=== PATIENT | female | born 1930 | race Caucasian/White ===

== ENCOUNTER 2019-04-17 10:01 | Observation (INO) | payer OTHER ==
[~2019-04-17] VITALS: Ht 162.6 cm; Wt 48.8 kg
[2019-04-17 10:54] LABS: BASOPHILS ABSOLUTE AUTO 0.02 K/mm3 (0.00-0.23); BASOPHILS PERCENT AUTO 0 % (0-2); EOSINOPHILS ABSOLUTE AUTO 0.02 K/mm3 (0.00-0.68); EOSINOPHILS PERCENT AUTO 0 % (0-6); Hematocrit 35.4 % (33.0-51.0); Hemoglobin 11.5 g/dL (11.5-16.0); IMMATURE GRAN ABSOLUTE AUTO 0.07 K/mm3 (0.00-0.10); IMMATURE GRAN PERCENT AUTO 1 % (0-1); LYMPHOCYTES ABSOLUTE AUTO 1.07 K/mm3 (0.84-5.20); LYMPHOCYTES PERCENT AUTO 14 % (21-46); MONOCYTES PERCENT AUTO 10 % (4-13); Mean Corpuscular HGB 30.3 pg (26.0-34.0); Mean Corpuscular HGB Conc 32.5 g/dL (31.5-36.5); Mean Corpuscular Volume 93 fL (80-100); Mean Platelet Volume 11.8 fL (9.1-12.4); NEUTROPHILS ABSOLUTE AUTO 5.82 K/mm3 (1.96-9.15); NEUTROPHILS PERCENT AUTO 75 % (41-73); Platelet Count 166 K/mm3 (150-400); RDW Coefficient Variation 12.7 % (11.7-14.2); RDW Standard Deviation 43.8 fL (35.1-46.3); Red Blood Cell Count 3.79 M/mm3 (3.80-5.20)
[2019-04-17 11:15] LABS: Alanine Aminotransfer (ALT/SGP 24 U/L (12-78); Albumin, Blood 3.5 g/dL (3.4-5.0); Albumin/Globulin Ratio 1.2 (0.8-1.8); Alk Phos 59 U/L (50-136); Anion Gap 6 mmol/L (6-16); Aspartate Aminotrans (AST/SGOT 24 U/L (12-37); Bilirubin, Total 0.5 mg/dL (0.1-1.0); Blood Urea Nitrogen 24 mg/dL (8-24); Bun/Creatinine Ratio 29.4 (12.0-20.0); CO2, Blood 33 mmol/L (21-32); Calcium, Blood 8.7 mg/dL (8.5-10.1); Chloride, Blood 97 mmol/L (98-108); Creatinine, Blood 0.82 mg/dL (0.40-1.00); Globulin, Blood 2.9 g/dL (2.2-4.0); Glomerular Filtration Rate >60 (60-); Glucose, Blood 153 mg/dL (70-99); Potassium, Blood 3.7 mmol/L (3.5-5.5); Sodium, Blood 136 mmol/L (136-145); Total Protein, Blood 6.4 g/dL (6.4-8.2)
[2019-04-17] MEDS ORDERED: Bisoprolol-Hct1 EAC1 PO (12:30)
[2019-04-17] MEDS ORDERED: Morphine Sulfat15 MG PO ×2 (12:31→12:48)
[2019-04-17] MEDS ORDERED: GABA300 PO (12:32)
[2019-04-17] MEDS ORDERED: OMEPRAZOLE20 MG PO (12:32)
[2019-04-17] MEDS ORDERED: DULOXETINE HCL40 MG PO (12:33)
[2019-04-17] MEDS ORDERED: ONDA4ODT SL (12:33)
[2019-04-17] MEDS ORDERED: CALCIUM 600 +1 EAC8 PO (12:50)
[2019-04-17] MEDS ORDERED: THERA1 EACH PO (13:05)
[2019-04-17] MEDS ORDERED: VITAMIN D31000 UNI2 PO (13:06)
--- NOTE | 2019-04-17 16:51 | NUR ---
ADMISSION: REPORT RECIEVED FROM ED PITO MARTIN. PT TO UNIT AT ABOUT 1540. UPON ASSESSMENT PT IS A/O, WEAK TO AMBULATE, NEEDED 1-2 ASSIST FROM GURNEY TO BED. PT DENIES SOB,CHEST PAIN, OR DIZZINESS. BREATHS ARE EVEN AND UNLABORED. VSS, PT NEEDED 1L O2 FOR SPO2 ABOVE 90%. PT DAUGHTER IN ROOM AND HELPED WITH ADMISSION QUESTIONS. PT IS HIGH FALL RISK, HX OF SYNCOPE, WILL MONITOR CLOSELY. BED ALARM ON, WILL CTM
--- NOTE | 2019-04-17 18:16 | NUR ---
SUMMARY: NO ACUTE CHANGE SINCE ADMIT, PT MEDICATED FOR PAIN. UP WITH 1 ASSIST TO COMMODE. BREATHING WNL. NO SAFETY CONCERNS AT THIS TIME
[2019-04-18 05:10] LABS: BASOPHILS ABSOLUTE AUTO 0.01 K/mm3 (0.00-0.23); BASOPHILS PERCENT AUTO 0 % (0-2); EOSINOPHILS ABSOLUTE AUTO 0.04 K/mm3 (0.00-0.68); EOSINOPHILS PERCENT AUTO 1 % (0-6); Hemoglobin 10.2 g/dL (11.5-16.0); IMMATURE GRAN ABSOLUTE AUTO 0.03 K/mm3 (0.00-0.10); IMMATURE GRAN PERCENT AUTO 1 % (0-1); LYMPHOCYTES ABSOLUTE AUTO 1.18 K/mm3 (0.84-5.20); LYMPHOCYTES PERCENT AUTO 21 % (21-46); MONOCYTES ABSOLUTE AUTO 0.87 K/mm3 (0.16-1.47); MONOCYTES PERCENT AUTO 16 % (4-13); Mean Corpuscular HGB 31.2 pg (26.0-34.0); Mean Corpuscular HGB Conc 32.9 g/dL (31.5-36.5); Mean Corpuscular Volume 95 fL (80-100); Mean Platelet Volume 12.2 fL (9.1-12.4); NEUTROPHILS ABSOLUTE AUTO 3.45 K/mm3 (1.96-9.15); NEUTROPHILS PERCENT AUTO 62 % (41-73); Platelet Count 134 K/mm3 (150-400); RDW Coefficient Variation 12.5 % (11.7-14.2); RDW Standard Deviation 43.4 fL (35.1-46.3); Red Blood Cell Count 3.27 M/mm3 (3.80-5.20); White Blood Cell Count 5.58 K/mm3 (4.00-11.30)
--- NOTE | 2019-04-18 06:20 | NUR ---
SUMMARY PT OUT TO XRAY THIS AM. REMAINS ON O2. REPORTS BREATHING IS SOME EASIER. REPORTS RIBS CONTINUE TO BE PAINFUL.
--- NOTE | 2019-04-18 07:05 | NUR ---
PT LEFT FOR CHEST XRAY WITH AMBER FROM RADIOLOGY AT THIS TIME
--- NOTE | 2019-04-18 20:13 | NUR ---
SUMMARY: NO ACUTE CHANGE TODAY. PT ABLE TO WORK WITH PT/OT. DENIES AND SOB, BREATHING IS EVEN AND UNLABORED.TELE AND VS STABLE. ATTEMPTED TO WEAN O2 TODAY WITHOUT TOO MUCH SUCCESS. SPO2 STABLE ON RA WHILE PT IS RESTING. BUT PT DESAT'S TO LOW 80'S WHEN UP WITH PT/OT AND ALSO WHILE ASLEEP. STABLE ON 1L AT SHIFT END. ENCOURAGING I.S. USE. PT BREATHING PAINFUL WITH BIG BREATH. NO ACUTE SAFETY CONCERNS AT THIS TIME. PT DAUGHTER IN ROOM MOST OF THE DAY. REPORT GIVEN TO PITO WANG.
[2019-04-19 05:37] LABS: BASOPHILS ABSOLUTE AUTO 0.01 K/mm3 (0.00-0.23); BASOPHILS PERCENT AUTO 0 % (0-2); EOSINOPHILS ABSOLUTE AUTO 0.05 K/mm3 (0.00-0.68); EOSINOPHILS PERCENT AUTO 1 % (0-6); Hematocrit 32.6 % (33.0-51.0); Hemoglobin 10.8 g/dL (11.5-16.0); IMMATURE GRAN ABSOLUTE AUTO 0.04 K/mm3 (0.00-0.10); IMMATURE GRAN PERCENT AUTO 1 % (0-1); LYMPHOCYTES ABSOLUTE AUTO 0.93 K/mm3 (0.84-5.20); LYMPHOCYTES PERCENT AUTO 14 % (21-46); MONOCYTES ABSOLUTE AUTO 0.96 K/mm3 (0.16-1.47); MONOCYTES PERCENT AUTO 14 % (4-13); Mean Corpuscular HGB 30.9 pg (26.0-34.0); Mean Corpuscular HGB Conc 33.1 g/dL (31.5-36.5); Mean Corpuscular Volume 93 fL (80-100); Mean Platelet Volume 11.8 fL (9.1-12.4); NEUTROPHILS ABSOLUTE AUTO 4.83 K/mm3 (1.96-9.15); NEUTROPHILS PERCENT AUTO 71 % (41-73); Platelet Count 141 K/mm3 (150-400); RDW Coefficient Variation 12.4 % (11.7-14.2); RDW Standard Deviation 42.7 fL (35.1-46.3); Red Blood Cell Count 3.49 M/mm3 (3.80-5.20); White Blood Cell Count 6.82 K/mm3 (4.00-11.30)
[2019-04-19 05:54] LABS: Albumin, Blood 3.2 g/dL (3.4-5.0); Anion Gap 7 mmol/L (6-16); Blood Urea Nitrogen 14 mg/dL (8-24); Bun/Creatinine Ratio 22.6 (12.0-20.0); CO2, Blood 32 mmol/L (21-32); Calcium, Blood 8.6 mg/dL (8.5-10.1); Chloride, Blood 96 mmol/L (98-108); Creatinine, Blood 0.62 mg/dL (0.40-1.00); Glomerular Filtration Rate >60 (60-); Glucose, Blood 104 mg/dL (70-99); Phosphorus, Blood 2.4 mg/dL (2.5-4.9); Potassium, Blood 3.8 mmol/L (3.5-5.5); Sodium, Blood 135 mmol/L (136-145)
[2019-04-19] MEDS ORDERED: ACET325 PO (10:37)
[2019-04-19] MEDS ORDERED: METO50ER PO (10:38)
[2019-04-19] MEDS ORDERED: Senna Plus Tab1 EACH PO (10:38)
[2019-04-19] MEDS ORDERED: MIRALAX17 GM PO (10:39)
--- NOTE | 2019-04-19 10:46 | NUR ---
CALLED PRESCRIPTION TO [facility]
--- NOTE | 2019-04-19 13:05 | NUR ---
AMBULATING IN [facility] W/RESPIRATORY THERAPIST.
--- NOTE | 2019-04-19 16:46 | NUR ---
DISCHARGED REVIEWED DC PAPERWORK W/DAUGHTER; VERBALIZED UNDERSTANDING. DC'D IV, CATHETER INTACT. PT REC'D 02 TO TAKE HOME FROM [facility]. LEFT UNIT IN WC, ACCOMPANIED BY DAUGHTER W/POSSESSIONS AND DC INSTRUCTIONS IN HAND.
== END 2019-04-19 16:00 | disposition home or self-care (01) ==
LOC: EDBD 10:01 → ER 10:01 → SURS 10:02
PROVIDERS: Emergency Medicine; Nurse Practitioner Acute Care; ADMIT Internal Medicine
DX: S22.42XA Multiple fractures of ribs, left side, initial encounter for closed fracture (principal); S27.2XXA Traumatic hemopneumothorax, initial encounter; R09.02 Hypoxemia; I95.1 Orthostatic hypotension; I10 Essential (primary) hypertension; G89.29 Other chronic pain; M54.9 Dorsalgia, unspecified; K21.9 Gastro-esophageal reflux disease without esophagitis; F32.9 Major depressive disorder, single episode, unspecified; Z95.0 Presence of cardiac pacemaker; Z79.899 Other long term (current) drug therapy; Z87.311 Personal history of (healed) other pathological fracture; W22.8XXA Striking against or struck by other objects, initial encounter; Y93.01 Activity, walking, marching and hiking; Y92.000 Kitchen of unspecified non-institutional (private) residence as the place of occurrence of the external cause
CPT/HCPCS: 36415; 70450; 71045; 71046; 71250; 72125; 80053; 80069; 84484; 85025; 93005; 93010; 94762; 96374; 96375; 96376; 97110; 97161; 97166; 97530; 97535; 99285-25; A9270; G0378; J2405; J3010; J7030

== ENCOUNTER 2020-06-04 10:31 | Emergency (ER) | payer OTHER ==
[~2020-06-04] VITALS: Ht 160 cm; Wt 45.4 kg
[~2020-06-04 10:31] MED LIST: ACET325 PO; Bisoprolol-Hct1 EAC1 PO; CALCIUM 600 +1 EAC8 PO; DULOXETINE HCL40 MG PO; GABA300 PO; METO50ER PO; MIRALAX17 GM PO; Morphine Sulfat15 MG PO; OMEPRAZOLE20 MG PO; ONDA4ODT SL; Senna Plus Tab1 EACH PO; THERA1 EACH PO; VITAMIN D31000 UNI2 PO
[2020-06-04 11:19] LABS: BASOPHILS ABSOLUTE AUTO 0.04 K/mm3 (0.00-0.23); BASOPHILS PERCENT AUTO 0 % (0-2); EOSINOPHILS ABSOLUTE AUTO 0.03 K/mm3 (0.00-0.68); EOSINOPHILS PERCENT AUTO 0 % (0-6); Hematocrit 37.8 % (33.0-51.0); Hemoglobin 12.1 g/dL (11.5-16.0); IMMATURE GRAN ABSOLUTE AUTO 0.94 K/mm3 (0.00-0.10); IMMATURE GRAN PERCENT AUTO 5 % (0-1); LYMPHOCYTES ABSOLUTE AUTO 0.45 K/mm3 (0.84-5.20); LYMPHOCYTES PERCENT AUTO 2 % (21-46); MONOCYTES ABSOLUTE AUTO 2.55 K/mm3 (0.16-1.47); MONOCYTES PERCENT AUTO 12 % (4-13); Mean Corpuscular HGB 29.4 pg (26.0-34.0); Mean Corpuscular Volume 92 fL (80-100); Mean Platelet Volume 12.1 fL (9.1-12.4); NEUTROPHILS ABSOLUTE AUTO 16.96 K/mm3 (1.96-9.15); NEUTROPHILS PERCENT AUTO 81 % (41-73); Platelet Count 186 K/mm3 (150-400); RDW Coefficient Variation 13.1 % (11.7-14.2); Red Blood Cell Count 4.11 M/mm3 (3.80-5.20); White Blood Cell Count 20.97 K/mm3 (4.00-11.30)
[2020-06-04 11:35] LABS: Albumin, Blood 3.6 g/dL (3.4-5.0); Albumin/Globulin Ratio 1.1 (0.8-1.8); Bilirubin, Total 0.8 mg/dL (0.1-1.0); Bun/Creatinine Ratio 30.5 (12.0-20.0); Calcium, Blood 9.1 mg/dL (8.5-10.1); Creatinine, Blood 0.98 mg/dL (0.40-1.00); Globulin, Blood 3.3 g/dL (2.2-4.0); Potassium, Blood 3.5 mmol/L (3.5-5.5); Total Protein, Blood 6.9 g/dL (6.4-8.2)
[2020-06-04 12:34] LABS: Influenza A, PCR Negative (NEGATIVE); Influenza B, PCR Negative (NEGATIVE); Resp Syncytial Virus, PCR Negative (NEGATIVE); SARS-Cov-2 (COVID-19) PCR, MMC Negative (NEGATIVE)
[2020-06-04 14:39] LABS: Source, Urine Voided
[2020-06-04 14:41] LABS: Appearance, Urine Clear (Clear); Bilirubin, Urine Neg (Neg); Blood, Urine Neg (Neg); Color, Urine Amber (P-Yellow); Glucose Qualitative, Urine Neg (Neg); Ketones, Urine Neg (Neg); Leukocyte Esterase, Urine 2+ (Neg); Nitrite, Urine Neg (Neg); Protein, Urine 1+ (Neg); Urobilinogen, Urine 2+ (Normal)
[2020-06-04 14:47] LABS: Bacteria Mod /hpf; Red Blood Cells, Urine 0-2 /hpf (0-2); Squamous Epithelial Cells Few /hpf (Few)
[2020-06-04] MEDS ORDERED: AZIT250 PO (15:36)
== END 2020-06-04 16:33 | disposition home or self-care (01) ==
LOC: ER 10:31
PROVIDERS: Emergency Medicine
DX: J18.9 Pneumonia, unspecified organism (principal); I10 Essential (primary) hypertension; K21.9 Gastro-esophageal reflux disease without esophagitis; Z20.828 Contact with and (suspected) exposure to other viral communicable diseases; Z95.0 Presence of cardiac pacemaker; Z79.899 Other long term (current) drug therapy
CPT/HCPCS: 0241U; 36415; 71045; 80053; 81001; 85025; 87086; 96361; 96365; 99285-25; A9270; J0696; J7030

== ENCOUNTER 2020-07-30 08:28 | Emergency (ER) | payer OTHER ==
[~2020-07-30] VITALS: Ht 165.1 cm; Wt 40.8 kg
[~2020-07-30 08:28] MED LIST changes: +AZIT250 PO
[2020-07-30] MEDS ORDERED: GABA100 PO (08:59)
[2020-07-30 09:22] LABS: BASOPHILS ABSOLUTE AUTO 0.02 K/mm3 (0.00-0.23); BASOPHILS PERCENT AUTO 0 % (0-2); EOSINOPHILS PERCENT AUTO 0 % (0-6); Hemoglobin 10.3 g/dL (11.5-16.0); IMMATURE GRAN PERCENT AUTO 2 % (0-1); LYMPHOCYTES ABSOLUTE AUTO 0.41 K/mm3 (0.84-5.20); LYMPHOCYTES PERCENT AUTO 4 % (21-46); MONOCYTES ABSOLUTE AUTO 2.25 K/mm3 (0.16-1.47); MONOCYTES PERCENT AUTO 20 % (4-13); Mean Corpuscular HGB 29.9 pg (26.0-34.0); Mean Corpuscular HGB Conc 33.2 g/dL (31.5-36.5); Mean Corpuscular Volume 90 fL (80-100); Mean Platelet Volume 12.1 fL (9.1-12.4); NEUTROPHILS ABSOLUTE AUTO 8.36 K/mm3 (1.96-9.15); NEUTROPHILS PERCENT AUTO 74 % (41-73); Platelet Count 132 K/mm3 (150-400); RDW Coefficient Variation 13.3 % (11.7-14.2); RDW Standard Deviation 43.8 fL (35.1-46.3); Red Blood Cell Count 3.45 M/mm3 (3.80-5.20); White Blood Cell Count 11.24 K/mm3 (4.00-11.30)
[2020-07-30 09:41] LABS: Albumin, Blood 2.8 g/dL (3.4-5.0); Albumin/Globulin Ratio 1.1 (0.8-1.8); Bilirubin, Total 0.8 mg/dL (0.1-1.0); Bun/Creatinine Ratio 22.8 (12.0-20.0); Calcium, Blood 7.7 mg/dL (8.5-10.1); Creatinine, Blood 1.14 mg/dL (0.40-1.00); Globulin, Blood 2.5 g/dL (2.2-4.0); Potassium, Blood 3.4 mmol/L (3.5-5.5); Total Protein, Blood 5.3 g/dL (6.4-8.2)
[2020-07-30 10:07] LABS: Source, Urine Clean Catch
[2020-07-30 10:19] LABS: Appearance, Urine Hazy (Clear); Bilirubin, Urine Neg (Neg); Blood, Urine Neg (Neg); Color, Urine Yellow (P-Yellow); Glucose Qualitative, Urine Neg (Neg); Ketones, Urine Neg (Neg); Leukocyte Esterase, Urine 2+ (Neg); Nitrite, Urine Neg (Neg); Protein, Urine 2+ (Neg); Urobilinogen, Urine 1+ (Normal)
[2020-07-30 10:49] LABS: Bacteria Mod /hpf; Hyaline Casts 0-2 /lpf (0-2); Red Blood Cells, Urine 0-2 /hpf (0-2); Squamous Epithelial Cells Mod /hpf (Few); Transitional Epithelial Cells Few /hpf (0-Rare)
[2020-07-30] MEDS ORDERED: ONDA4ODT MM (11:21)
[2020-07-30] MEDS ORDERED: SULTRIDS PO (11:21)
== END 2020-07-30 11:38 | disposition home or self-care (01) ==
LOC: ER 08:28
PROVIDERS: Emergency Medicine
DX: E86.0 Dehydration (principal); N39.0 Urinary tract infection, site not specified; I10 Essential (primary) hypertension; K21.9 Gastro-esophageal reflux disease without esophagitis; Z79.899 Other long term (current) drug therapy
CPT/HCPCS: 71045; 80053; 81001; 85025; 87086; 96360; 99285-25

== ENCOUNTER 2021-02-25 14:24 | Emergency (ER) | payer OTHER ==
[~2021-02-25] VITALS: Ht 162.6 cm; Wt 52.2 kg
[~2021-02-25 14:24] MED LIST changes: +GABA100 PO; +ONDA4ODT MM; +SULTRIDS PO
[2021-02-25 15:09] LABS: Source, Urine Clean Catch
[2021-02-25 15:23] LABS: BASOPHILS ABSOLUTE AUTO 0.03 K/mm3 (0.00-0.23); BASOPHILS PERCENT AUTO 0 % (0-2); EOSINOPHILS PERCENT AUTO 0 % (0-6); Hematocrit 32.3 % (33.0-51.0); Hemoglobin 10.9 g/dL (11.5-16.0); IMMATURE GRAN ABSOLUTE AUTO 0.23 K/mm3 (0.00-0.10); IMMATURE GRAN PERCENT AUTO 1 % (0-1); LYMPHOCYTES ABSOLUTE AUTO 0.46 K/mm3 (0.84-5.20); LYMPHOCYTES PERCENT AUTO 3 % (21-46); MONOCYTES ABSOLUTE AUTO 3.43 K/mm3 (0.16-1.47); MONOCYTES PERCENT AUTO 21 % (4-13); Mean Corpuscular HGB 29.7 pg (26.0-34.0); Mean Corpuscular HGB Conc 33.7 g/dL (31.5-36.5); Mean Corpuscular Volume 88 fL (80-100); Mean Platelet Volume 12.6 fL (9.1-12.4); NEUTROPHILS ABSOLUTE AUTO 12.12 K/mm3 (1.96-9.15); NEUTROPHILS PERCENT AUTO 75 % (41-73); Platelet Count 148 K/mm3 (150-400); RDW Coefficient Variation 13.2 % (11.7-14.2); RDW Standard Deviation 42.8 fL (35.1-46.3); Red Blood Cell Count 3.67 M/mm3 (3.80-5.20); White Blood Cell Count 16.27 K/mm3 (4.00-11.30)
[2021-02-25 15:24] LABS: Appearance, Urine Clear (Clear); Bilirubin, Urine Neg (Neg); Blood, Urine Neg (Neg); Color, Urine Yellow (P-Yellow); Glucose Qualitative, Urine Neg (Neg); Ketones, Urine Neg (Neg); Leukocyte Esterase, Urine Neg (Neg); Nitrite, Urine Neg (Neg); Protein, Urine 2+ (Neg); Specific Gravity, Urine 1.015 (1.003-1.022); Urobilinogen, Urine 1+ (Normal)
[2021-02-25 15:40] LABS: Albumin/Globulin Ratio 1.1 (0.8-1.8); Bilirubin, Total 1.1 mg/dL (0.1-1.0); Bun/Creatinine Ratio 18.5 (12.0-20.0); Calcium, Blood 8.6 mg/dL (8.5-10.1); Creatinine, Blood 1.62 mg/dL (0.40-1.00); Globulin, Blood 2.8 g/dL (2.2-4.0); Potassium, Blood 3.4 mmol/L (3.5-5.5); Total Protein, Blood 5.8 g/dL (6.4-8.2)
[2021-02-25 15:40] LABS: Bacteria Not Seen /hpf; Granular Casts 0-2 /lpf (0); Hyaline Casts 0-2 /lpf (0-2); Red Blood Cells, Urine 0-2 /hpf (0-2); Squamous Epithelial Cells Rare /hpf (Few); White Blood Cells, Urine 0-2 /hpf (0-5)
[2021-02-25] MEDS ORDERED: BISOPROLOL-HCT1 EACH (15:46)
[2021-02-25] MEDS ORDERED: AZIT250 PO (17:19)
== END 2021-02-25 17:47 | disposition home or self-care (01) ==
LOC: ER 14:24
PROVIDERS: Emergency Medicine
DX: J18.9 Pneumonia, unspecified organism (principal); I95.9 Hypotension, unspecified; I10 Essential (primary) hypertension; K21.9 Gastro-esophageal reflux disease without esophagitis; Z20.822 Contact with and (suspected) exposure to COVID-19; Z79.899 Other long term (current) drug therapy
CPT/HCPCS: 71045; 80053; 81001; 85025; 96360-59; 96361-59; 99285-25; J7030; P9612

== ENCOUNTER 2021-09-23 12:02 | Inpatient (IN) | payer OTHER ==
[~2021-09-23] VITALS: Ht 170.2 cm; Wt 44.5 kg
[~2021-09-23 12:02] MED LIST changes: +BISOPROLOL-HCT1 EACH
[2021-09-23 18:02] LABS: Alanine Aminotransfer (ALT/SGP 20 U/L (12-78); Albumin, Blood 3.5 g/dL (3.4-5.0); Albumin/Globulin Ratio 1.2 (0.8-1.8); Alk Phos 59 U/L (50-136); Anion Gap 5 mmol/L (6-16); Aspartate Aminotrans (AST/SGOT 21 U/L (12-37); Bilirubin, Total 0.9 mg/dL (0.1-1.0); Blood Urea Nitrogen 19 mg/dL (8-24); Bun/Creatinine Ratio 27.9 (12.0-20.0); CO2, Blood 32 mmol/L (21-32); Calcium, Blood 8.8 mg/dL (8.5-10.1); Chloride, Blood 99 mmol/L (98-108); Creatinine, Blood 0.68 mg/dL (0.40-1.00); Glomerular Filtration Rate >60 (60-); Glucose, Blood 105 mg/dL (70-99); Potassium, Blood 3.4 mmol/L (3.5-5.5); Sodium, Blood 136 mmol/L (136-145); Total Protein, Blood 6.5 g/dL (6.4-8.2)
[2021-09-23 18:31] LABS: BASOPHILS ABSOLUTE AUTO 0.01 K/mm3 (0.00-0.23); BASOPHILS PERCENT AUTO 0 % (0-2); EOSINOPHILS ABSOLUTE AUTO 0.07 K/mm3 (0.00-0.68); EOSINOPHILS PERCENT AUTO 1 % (0-6); Hematocrit 35.2 % (33.0-51.0); IMMATURE GRAN ABSOLUTE AUTO 0.25 K/mm3 (0.00-0.10); IMMATURE GRAN PERCENT AUTO 3 % (0-1); LYMPHOCYTES ABSOLUTE AUTO 0.82 K/mm3 (0.84-5.20); LYMPHOCYTES PERCENT AUTO 11 % (21-46); MONOCYTES ABSOLUTE AUTO 1.28 K/mm3 (0.16-1.47); MONOCYTES PERCENT AUTO 18 % (4-13); Mean Corpuscular HGB 29.5 pg (26.0-34.0); Mean Corpuscular HGB Conc 34.1 g/dL (31.5-36.5); Mean Corpuscular Volume 87 fL (80-100); NEUTROPHILS ABSOLUTE AUTO 4.85 K/mm3 (1.96-9.15); NEUTROPHILS PERCENT AUTO 67 % (41-73); Platelet Count 91 K/mm3 (150-400); RDW Coefficient Variation 13.1 % (11.7-14.2); RDW Standard Deviation 41.1 fL (35.1-46.3); Red Blood Cell Count 4.07 M/mm3 (3.80-5.20); White Blood Cell Count 7.28 K/mm3 (4.00-11.30)
[2021-09-23 18:34] LABS: Mean Platelet Volume 13.2 fL (9.1-12.4)
--- NOTE | 2021-09-24 04:42 | NUR ---
PT REFUSED LABS PT CONFUSED AND ANXIOUS. ATTEMPTED TO ASSIST CUSTOMS COMPLIANCE ANALYST WITH DRAW, PT VERY ANXIOUS AND NOT ALLOWING DRAW. CUSTOMS COMPLIANCE ANALYST TO COME BACK LATER TO TRY AGAIN.
--- NOTE | 2021-09-24 04:45 | NUR ---
PICKER TENDER HELPER SUMMARY NEW ADMIT FROM THE ED. ADMITTED FOR L PELVIC PRACTURE AND BOWEL PERF. PT WITH HX OF DEMENTIA AND IS VERY CONFUSED. AAO TO SELF, NEED FREQUENT ORIENTATION. PT COMPLAINING OF HEADACHE, MEDICATED WITH TYLENOL. ALSO GIVEN ZOFRAN FOR NAUSEA. PT HAS BRUISING SCATTERED T/O ESPECIALLY ARMS AND BLE'S. REDNESS ON COCCYX NOTED. SKIN TEAR ON L ARM. MAINTENANCE FLUIDS RUNNING WITH KCL RUNNING CURRENTLY. PT HAD LOOSE INCONTINENT BM SHORTLY AFTER COMING TO THE UNIT. VSS, WILL CONTINUE TO MONITOR.
[2021-09-24] MEDS ORDERED: BISOPROLOL-HCT1 EACH PO (05:44)
[2021-09-24] MEDS ORDERED: CALCIUM 600 +1 EA11 PO (05:45)
[2021-09-24] MEDS ORDERED: GABA300 PO (05:46)
[2021-09-24] MEDS ORDERED: Morphine Sulfat15 MG PO (05:48)
[2021-09-24] MEDS ORDERED: OMEP20ER PO (05:49)
[2021-09-24 10:07] LABS: Hematocrit 40.6 % (33.0-51.0); Hemoglobin 13.3 g/dL (11.5-16.0); Mean Corpuscular HGB 29.2 pg (26.0-34.0); Mean Corpuscular HGB Conc 32.8 g/dL (31.5-36.5); Mean Corpuscular Volume 89 fL (80-100); Mean Platelet Volume 12.9 fL (9.1-12.4); Platelet Count 108 K/mm3 (150-400); RDW Standard Deviation 42.5 fL (35.1-46.3); Red Blood Cell Count 4.55 M/mm3 (3.80-5.20); White Blood Cell Count 9.82 K/mm3 (4.00-11.30)
[2021-09-24 10:25] LABS: Anion Gap 8 mmol/L (6-16); Blood Urea Nitrogen 15 mg/dL (8-24); Bun/Creatinine Ratio 24.3 (12.0-20.0); CO2, Blood 29 mmol/L (21-32); Calcium, Blood 8.7 mg/dL (8.5-10.1); Chloride, Blood 96 mmol/L (98-108); Creatinine, Blood 0.62 mg/dL (0.40-1.00); Glomerular Filtration Rate >60 (60-); Glucose, Blood 130 mg/dL (70-99); Potassium, Blood 3.2 mmol/L (3.5-5.5); Sodium, Blood 133 mmol/L (136-145)
[2021-09-24 11:14] LABS: BASOPHILS PERCENT MAN 0 % (0-2); EOSINOPHILS PERCENT MAN 0 % (0-6); LYMPHOCYTES ABSOLUTE MAN 0.39 K/mm3 (0.84-5.20); LYMPHOCYTES PERCENT MAN 4 % (21-46); MONOCYTES ABSOLUTE MAN 0.78 K/mm3 (0.16-1.47); MONOCYTES PERCENT MAN 8 % (4-13); MYELOCYTE ABSOLUTE MAN 0.09 K/mm3 (0.00-0.00); MYELOCYTE PERCENT MAN 1 % (0-0); NEUTROPHILS ABSOLUTE MAN 8.54 K/mm3 (1.96-9.15); SEG NEUTROPHILS PERCENT MAN 87 % (41-73); TOTAL CELLS COUNTED 100
--- NOTE | 2021-09-24 14:04 | NUR ---
Spoke with Dr Spence prior to visiting with Pt and discussed case. Family may benefit from discussion regarding Pt's wishes for code status. Pt sitting in recliner chair with her eyes closed upon arrival. Pt remains with her eyes closed for much of the visit. Pt's daughter Sally at bedside. Offered therapeutic listening as Sally reports Pt living with her and is Pt's primary caregiver. Prior to this hospital stay Pt was still ambulatory. Listened as Sally discusses plan for Dr Reagan to return later today to discuss treatment options. She expresses concerns that Pt wrote in her advanced directive wanting everything done unless she has irreversable brain damage. Inquired if Pt had a crystal ball at the time of completing advanced directive, would Pt's wishes be the same. Sally reports no her mother would not want everything done. Pt's advanced directive also appoints Sally as POA and allow Sally to make decisions regarding her healthcare including if needed to withhold care. Continued therapeutic listening and answered questions. Eduacated on disease process including trajectory. Discussed Pt's current code status. Educated on life sustaining treatment including risk factors and implications of CPR. Sally reports Pt would not want CPR or intubation. Pt wakes and appears mildly agitated attempting to get out of chair and pull Tele leads off. Assisted Primary RN Yumiko with transfering Pt back to bed. Yumiko will offer pain medication. Spoke with Dr Spence and discussed case. Placed order for Pt's code status to be DNR per V/O from Dr Spence. Palliative Care will F/U with Pt and family after Dr Reagan visit.
--- NOTE | 2021-09-24 15:42 | NUR ---
SHIFT SUMMARY: LEFT FEMUR FX PATIENT IS ONLY ORIENTED TO FAMILY AND SELF. OTHERWISE CONFUSED/ANXIOUS WITH OTHERS IN THE ROOM. PREFERS TO HAVE MASKS DOWN AND DON'T TOUCH QUICKLY TO DECREASE ANXIETY. VS ARE WNL AND IS ON RA. PAIN IS MANAGED WITH ROXANOL AND ATIVAN FOR THE ANXIETY. 2 PERSON ASSIST WITH GAIT BELT AND FWW. BED AND TAB ALARM ON. DAUGHTER AT BEDSIDE. CALL LIGHT WITHIN REACH. THE PLAN IS AWAITING FOR DR. KNAPP TO COME IN AND MAKE A FUTURE PLAN WITH DAUGHTER ONCE HES DONE WITH SURGERY.
--- NOTE | 2021-09-24 17:25 | NUR ---
PALLIATIVE CARE CAME AND TALKED WITH DAUGHTER. WENDY FROM PALLIATIVE STATED THAT DAUGHTER IS LEANING TOWARDS HOSPICE FOR THE PATIENT. DAUGHTER WANTS TO HEAR FROM HOSPITALIST FOR ALL OPTIONS TO CONFIRM HER CHOICE. DAUGHTER WANTS TO BE CALLED WHEN HOSPITALIST IS GOING TO COME IN. PATIENT IS SITTING UP IN CHAIR ASLEEP WITH EQUAL/EVEN RESP. CALL LIGHT WITHIN REACH. TAB ALARM IS ON.
--- NOTE | 2021-09-24 17:44 | NUR ---
Spoke with Dr Reagan and discussed case. Dr Reagan reports having conversation with Pt's daughter who ultimately decided that surgery would not be in Pt's best interest. Dr Reagan reports daughter may be opened to hospice discussion. Pt resting in bed with her eyes closed. Engaged in conversation with daughter Sally regarding goals of care. Discussed considering Pt's goals and values at this stage in Pt's life. Discussed hospice as an option and educated on hospice philosophy. Discussed speaking with hospitalist when she makes her rounds regarding recommendations. Instructed Sally if Pt would want hospice then she can be evaluated for hospice appropriateness and referral can be made. Sally appears open to the idea of hospice and would like to discuss further. Sally expresses appreciation and reports no other concerns at this time. Spoke with Primary RN Yumiko and discussed case. Spoke with Dr Spence and discussed case. Palliative Care will F/U for goals of care.
--- NOTE | 2021-09-24 22:05 | NUR ---
UPON SHIFT CHANGE PATIENT BECAME VERY CONFUSED AND AGGITATED, ATTEMPTING TO CRAWL OUT OF BED- ATIVAN GIVEN AT APPROX 1920. PT CONTINUED TO TRY TO CLIMB OUT OF BED, BED ALARM SET. STAFF MEMBER AT BEDSIDE.
--- NOTE | 2021-09-24 22:09 | NUR ---
CALLED REPORT TO RN ASSUMING CARE OF PATIENT, PATIENT SLEEPING AT THIS TIME. PT TRANSFERED TO RM 345 AT APPROX 2150. ALL PERSONAL BELONGINGS TAKEN WITH PATIENT, WELL CANE.
--- NOTE | 2021-09-24 22:24 | NUR ---
NURSE NOTE- 2204- ASSUMED CARE- AGREE WITH PRIOR NURSE ASSESSMENT
--- NOTE | 2021-09-25 03:22 | NUR ---
SHIFT SUMMARY: A/O TO SELF ONLY, SHORT-TERM MEMORY LOSS, CONFUSION, DIFFICULTY UNDERSTANDING AND FOLLOWING DIRECTIONS. PT PRESENTING WITH INCREASED HIP PAIN. MULTIPLE ATTEMPTS TO GET OUT OF BED, 2 PERSON ASSIST TO BEDSIDE COMMODE. PT ABLE TO TRANSFER TO BEDSIDE COMMODE BUT EXPERIENCES SIGNIFICANT INCREASED PAIN. PT RESPONDS WELL TO PRN MORPHINE AND ATIVAN TO HELP WITH PAIN AND ANXIETY. BED ALARM ACTIVATED, BED IN LOW POSITION, CALL PLAZA AND BELONGINGS IN REACH.
--- NOTE | 2021-09-25 05:04 | NUR ---
NURSE NOTE: MARIANA DE LA CRUZ NOTIFIED- PATIENT HAVING INCREASED PAIN NON COMPLIANT TAKING PO MEDICATIONS AT THIS TIME. GAVE TELEPHONE ORDER FOR 25-50 MCG FENTANYL Q4 HRS PRN.
[2021-09-25 05:10] LABS: BASOPHILS ABSOLUTE AUTO 0.01 K/mm3 (0.00-0.23); BASOPHILS PERCENT AUTO 0 % (0-2); EOSINOPHILS ABSOLUTE AUTO 0.04 K/mm3 (0.00-0.68); EOSINOPHILS PERCENT AUTO 0 % (0-6); Hematocrit 36.7 % (33.0-51.0); Hemoglobin 12.4 g/dL (11.5-16.0); IMMATURE GRAN ABSOLUTE AUTO 0.39 K/mm3 (0.00-0.10); IMMATURE GRAN PERCENT AUTO 3 % (0-1); LYMPHOCYTES ABSOLUTE AUTO 1.19 K/mm3 (0.84-5.20); LYMPHOCYTES PERCENT AUTO 9 % (21-46); MONOCYTES ABSOLUTE AUTO 2.52 K/mm3 (0.16-1.47); MONOCYTES PERCENT AUTO 19 % (4-13); Mean Corpuscular HGB 29.5 pg (26.0-34.0); Mean Corpuscular HGB Conc 33.8 g/dL (31.5-36.5); Mean Corpuscular Volume 87 fL (80-100); NEUTROPHILS ABSOLUTE AUTO 9.13 K/mm3 (1.96-9.15); NEUTROPHILS PERCENT AUTO 69 % (41-73); Platelet Count 111 K/mm3 (150-400); RDW Standard Deviation 40.9 fL (35.1-46.3); White Blood Cell Count 13.28 K/mm3 (4.00-11.30)
[2021-09-25 05:47] LABS: Albumin, Blood 3.4 g/dL (3.4-5.0); Anion Gap 3 mmol/L (6-16); Blood Urea Nitrogen 20 mg/dL (8-24); Bun/Creatinine Ratio 32.5 (12.0-20.0); CO2, Blood 32 mmol/L (21-32); Calcium, Blood 8.6 mg/dL (8.5-10.1); Chloride, Blood 97 mmol/L (98-108); Creatinine, Blood 0.62 mg/dL (0.40-1.00); Glomerular Filtration Rate >60 (60-); Glucose, Blood 126 mg/dL (70-99); Magnesium, Blood 1.8 mg/dL (1.6-2.4); Phosphorus, Blood 2.6 mg/dL (2.5-4.9); Potassium, Blood 3.6 mmol/L (3.5-5.5); Sodium, Blood 132 mmol/L (136-145)
[2021-09-25 10:16] LABS: Source, Urine Straight Cath
[2021-09-25 10:30] LABS: Bilirubin, Urine Neg (Neg); Blood, Urine 4+ (Neg); Glucose Qualitative, Urine Neg (Neg); Ketones, Urine 2+ (Neg); Leukocyte Esterase, Urine Neg (Neg); Nitrite, Urine Neg (Neg); Protein, Urine 2+ (Neg); Specific Gravity, Urine 1.015 (1.003-1.022); Urobilinogen, Urine NORM (Normal)
[2021-09-25 10:37] LABS: Appearance, Urine Clear (Clear); Color, Urine Yellow (P-Yellow)
[2021-09-25 10:42] LABS: Bacteria Few /hpf; Squamous Epithelial Cells Few /hpf (Few); White Blood Cells, Urine 0-2 /hpf (0-5)
--- NOTE | 2021-09-25 16:39 | NUR ---
Shift Summary A/O to self and family. Daughter Sally visited this morning and appeared distraught at patient's new agitated behaviors. Patient was yelling and cursing, something that is new per Sally. 2p/gait belt to commode for bathroom needs. Impulsive and tries to climb out of bed. Medicated for agitation and pain, patient more calm and sleeping afterward. Preventative mepilex placed on coccyx. Bed in lowest position. Call light near.
--- NOTE | 2021-09-25 16:46 | NUR ---
Preferred discharge facility Sally called and notified this RN that she would prefer Yazmin be discharged to [facility].
--- NOTE | 2021-09-26 04:16 | NUR ---
SHIFT SUMMARY: PATIENT ALERT TO SELF. CONTINUED CONFUSION THROUGHOUT THE NIGHT, INCREASED RESTLESSNESS, AND DISCOMFORT- RELIEVED WITH PRN ATIVAN AND PAIN MEDS-REVIEW PER EMAR. RESTRAINTS CONTINUED THROUGHOUT MAJORITY OF SHIFT DUE TO MULTIPLE ATTMEPTS TO GET OUT OF BED AND PULL AT LINES -0400 RESTRAINTS DISCONTINUED- PT ABLE TO REST AT THIS TIME WITH NO ATTEMPTS TO GET OUT OF BED. VERY DIFFICULT FOR PATIENT TO AGREE TO TAKE PO MEDS, PATIENT AGREED THIS MORNING TO TAKE PO SEROQUEL- PT RESPONDED VERY POSITIVELY, DECREASED ANXIETY & IRRITABILITY. BED ALARM ACTIVATED, BED IN LOW POSITION, CALL PLAZA IN REACH- CAMERA MONITORING CONTINUED.
[2021-09-26 05:09] LABS: Anion Gap 6 mmol/L (6-16); Blood Urea Nitrogen 19 mg/dL (8-24); Bun/Creatinine Ratio 29.5 (12.0-20.0); CO2, Blood 29 mmol/L (21-32); Calcium, Blood 8.3 mg/dL (8.5-10.1); Chloride, Blood 101 mmol/L (98-108); Creatinine, Blood 0.64 mg/dL (0.40-1.00); Glomerular Filtration Rate >60 (60-); Glucose, Blood 88 mg/dL (70-99); Magnesium, Blood 1.6 mg/dL (1.6-2.4); Phosphorus, Blood 2.2 mg/dL (2.5-4.9); Potassium, Blood 2.9 mmol/L (3.5-5.5); Sodium, Blood 136 mmol/L (136-145); Triglycerides 73 mg/dL (30-160)
--- NOTE | 2021-09-26 14:58 | NUR ---
THE PATIENT WAS REPOSITIONED IN BED TOLERATED. THE PATIENT HAS BEEN REFUSING HANDS ON CARE. PATIENT MEDICATED PER EMAR FOR PAIN AND ANXIETY. FAMILY AT BEDSIDE.
--- NOTE | 2021-09-26 15:05 | NUR ---
PATIENT MEDICATED PER MAR FOR PAIN. FAMILY AT BEDSIDE. PATIENT REFUSED ORAL INTAKE AND MOUTH MOISTURIZER.
--- NOTE | 2021-09-26 16:06 | NUR ---
THE PATIENT IS PLEASANT THIS AFTERNOON. THEY WERE OKAY WITH HANDS ON CARE, AND APPLYING MOISTURIZER. THE PATIENT GOT A WARM BLANKET WELL.
--- NOTE | 2021-09-26 18:39 | NUR ---
PATIENT HAS BEEN ASKING FOR THEIR MOM MORE THIS AFTERNOON. THIS NURSE HAS BEEN REORIENTING THE PATIENT HAS NEEDED. THE PATIENT IS IN BED WITH THE ALARM ON. CHAP STICK APPLIED.
--- NOTE | 2021-09-27 02:16 | NUR ---
VERIFIED ATIVAN ORAL SOLUTION GIVEN TO PT WAS 1MG AND WASTED 1MG.
--- NOTE | 2021-09-27 04:26 | NUR ---
SHIFT SUMMARY: COMFORT CARE- PT A/O TO SELF ONLY. INCREASED DISCOMFORT AND ANXIETY THROUGHOUT THE NIGHT- MANAGED WITH NEW COMFORT CARE PRN PAIN AND ANXIETY MEDICATION ORDERS. EGG CRATE MATTRESS TOPPER ADDED TO BED DUE TO PT COMPLAINT OF BACK PAIN. GOAL TO MANAGE PAIN AND ANXIETY, BY FREQUENTLY ASSESSING DISCOMORT AND ADMINISTERING PRN MEDICATIONS WHEN PRESENTING DISCOMFORT.
--- NOTE | 2021-09-27 06:32 | NUR ---
NURSE NOTE: PER PHARMACY INSTRUCTION- WHEN ADMINISTERING PO LIQUID ATIVAN, WASTE AT BEDSIDE WITH SECOND RN DUE TO THIS MEDICATION NOT BEING LOADED INTO PYXIS THEREFORE CANNOT BE WASTED THROUGH PYXIS SYSTEM. 2 DOSES OF PO LIQUID ATIVAN ADMINISTERED THIS SHIFT, BOTH ADMINISTRATIONS ADDITIONAL NURSE AT BEDSIDE TO WITNESS WASTE AND VERIFY PROPER ADMINISTRATION, WASTE AND DOCUMENTATION.
--- NOTE | 2021-09-27 09:18 | NUR ---
THE PATIENT WAS UP TO BSC WITH 2 ASSIST. REPOSITIONED IN BED FOR COMFORT. WARM BLANKET APPLIED. THE PATIENT WAS ABLE TO HAVE A FEW BITES OF PUDDING AND SOME COFFEE. THE PATIENT IS COMFORTABLE AND LESS ANXIOUS THAN YESTERDAY. THE PATIENT IS MORE ACCEPTING TO HANDS ON CARE WELL. PATIENT MEDICATED PER EMAR FOR PAIN.
--- NOTE | 2021-09-27 12:09 | NUR ---
PATIENT MEDICATED PER EMAR FOR PAIN AND ANXIETY.FAMILY AT BEDSIDE. PATIENT APPEARS COMFORTABLE. WATER OFFERED AT BEDSIDE.
--- NOTE | 2021-09-27 13:28 | NUR ---
PATIENT WAS ABLE TO EAT SOME APPLES AND PEANUT BUTTER. THE PATIENT IS PLEASANT AND COMFORTABLE AT THIS TIME.
--- NOTE | 2021-09-27 16:40 | NUR ---
PATIENT IS COMFORTABLE. NO MEDS GIVEN AT THIS TIME. PATIENT SHOWING NO SIGNS OF DISTRESS. FAMILY AT BEDSIDE.
--- NOTE | 2021-09-27 16:48 | NUR ---
PATIENT UP TO THE BSC WITH 2 ASSIST. PERSONAL CARE DONE. MEPILIX DRESSING APPLIED TO COCCYX FOR PROCTECTION. NO PAIN AT THIS TIME. PATIENT APPEARS COMFORTABLE. WILL CONTINUE TO MONITOR.
--- NOTE | 2021-09-27 18:24 | NUR ---
PATIENT IS RESTING COMFORTABLY. NO DISTRESS AT THIS TIME. PATIENT GIVEN PAIN/ANXIETY MEDICATIONS X2 THIS SHIFT. THE PATIENT HAS A LOW TOLERANCE FOR THE PAIN MEDICATION GIVEN. PATIENT HAS BEEN IN BED. THEY HAVE NOT TRIED TO GET UP WITHOUT HELP THIS SHIFT. PLEASANT AND COOPERATIVE WITH STAFF. THE PATIENT OVERALL HAD A BETTER DAY THAN YESTERDAY. PATIENT HAS PLANS TO TRANSER HOME TO [place] WITH HOSPICE IN THE NEXT FEW DAYS.
--- NOTE | 2021-09-28 04:22 | NUR ---
SHIFT SUMMARY: PT IS ALERT AND CONFUSED. PT IS A TWO PERSON ASSIST TO THE BSC. PT SLEEPING MUCH OF THE NIGHT WHEN NOT DISTURBED. PT SHOWS NO S/S FOR PAIN, NAUSEA, VOMITING, OR SOB. BED IN LOW POSITION, CALL LIGHT WITHIN REACH, BED ALARM SET. WILL CONTINUE TO MONITOR.
--- NOTE | 2021-09-28 07:25 | NUR ---
START OF SHIFT RECEIVED REPORT, ASSUMED CARE OF PT.
--- NOTE | 2021-09-28 07:53 | NUR ---
TRANSFER OF CARE. TRANSFER OF CARE TRANSFERRED TO PRECEPTING NURSE NITZA SHELDON.
--- NOTE | 2021-09-28 17:45 | NUR ---
SHIFT SUMMARY PT REPORTING HEADACHE THIS MORNING WHILE DAUGHTER AT BEDSIDE. ROXONAL GIVEN WITH EFFECT. LIGHTS DIM AND DOOR CLOSED TO EASE DISCOMFORT WELL. HEADACHE RETURNED AFTER DAUGHTER LEFT AND PT CRYING IN ROOM ASKING FOR [place]. ATIVAN AND ROXONAL GIVEN AND PT MUCH CALMER AND DENIES HEADACHE. DRINKING WATER BUT DECLINING ANY MEALS BROUGHT TO HER. 1 PERSON ASSIST UP TO BEDSIDE COMMODE THIS AFTERNOON.
--- NOTE | 2021-09-29 05:14 | NUR ---
SHIFT SUMMARY - NO ACUTE CHANGES THIS SHIFT. PT DID YELL OUT 2 TIMES LAST NOC, WAS EASILY REDIRECTABLE. PT COMPLAINED OF HER LEFT EYE - SHE FELT LIKE "SOMETHING WAS IN HER EYE." UNABLE TO SEE ANYTHING VISIBLE IN PT'S LEFT EYE. OTHERWISE PT HAS SLEPT THROUGHOUT MOST OF THE NIGHT. PT UP X1 TO BSC WITH 2 PERSON ASSIST - CLEAR DARK YELLOW URINE OUT. PT MEDICATED X1 FOR LEFT EYE PAIN - SEE EMAR AND ATIVAN X1 FOR ANXIETY - SEE EMAR. CALL LIGHT WITHIN REACH. BED IN LOW POSITION. FLUIDS/SNACKS AT BEDSIDE.
--- NOTE | 2021-09-29 07:34 | NUR ---
START OF SHIFT REDEIVED REPORT, ASSUMED CARE OF PT
[2021-09-29] MEDS ORDERED: MORP20L SL (13:13)
[2021-09-29] MEDS ORDERED: Ativan1 MG PO (13:14)
[2021-09-29] MEDS ORDERED: ONDA4ODT MM (13:15)
[2021-09-29] MEDS ORDERED: QUET25 PO (13:16)
[2021-09-29] MEDS ORDERED: TRANSDERM-SCOP1 EAC1 TD (13:17)
--- NOTE | 2021-09-29 14:31 | NUR ---
DC HOME WITH HOSPICE VIA AMBULANCE TRANSPORT. MEDICATED FOR TRANSPORT AND FOR C/O PAIN. ALL PERSONAL BELONGINGS SENT WITH PT.
== END 2021-09-29 13:55 | disposition hospice, home (50) | DRG 393 ==
LOC: ER 12:02 → MEDS 22:18 → SURS 22:18 → MEDS 09-24 21:41
PROVIDERS: Internal Medicine; Student in an Organized Health Care Education/Training Program; ADMIT Internal Medicine
PROC: 3E0234Z Introduction of Serum, Toxoid and Vaccine into Muscle, Percutaneous Approach (ICD-10-PCS; principal; 2021-09-23)
DX: S36.99XA Other injury of unspecified intra-abdominal organ, initial encounter (principal); J96.01 Acute respiratory failure with hypoxia; S32.512A Fracture of superior rim of left pubis, initial encounter for closed fracture; E46 Unspecified protein-calorie malnutrition; R64 Cachexia; Z68.1 Body mass index [BMI] 19.9 or less, adult; Z66 Do not resuscitate; Z51.5 Encounter for palliative care; R79.1 Abnormal coagulation profile; Z23 Encounter for immunization; D69.6 Thrombocytopenia, unspecified; E87.6 Hypokalemia; I10 Essential (primary) hypertension; G30.9 Alzheimer's disease, unspecified; F02.80 Dementia in other diseases classified elsewhere, unspecified severity, without behavioral disturbance, psychotic disturbance, mood disturbance, and anxiety; I27.20 Pulmonary hypertension, unspecified; K21.9 Gastro-esophageal reflux disease without esophagitis; Z79.899 Other long term (current) drug therapy; Z95.0 Presence of cardiac pacemaker; Z90.49 Acquired absence of other specified parts of digestive tract; Z98.890 Other specified postprocedural states; W18.30XA Fall on same level, unspecified, initial encounter
CPT/HCPCS: 36415; 70450; 71045; 71260; 72040; 72192; 73070; 73502; 74177; 80048; 80053; 80069; 81001; 82306; 83735; 84100; 84478; 85025; 85379; 90471; 90714; 93005; 93010; 97166; 97535; 99285-25; A9270; J2060; J2405; J2543; J3010; J3480; J7030; J7040; J7060; Q9967